=== PATIENT | female | born 2000 | race Caucasian/White ===

== ENCOUNTER 2021-08-06 16:46 | Emergency (ER) | payer BC, MEDICAID ==
[~2021-08-06] VITALS: Ht 175.3 cm; Wt 59.0 kg
[2021-08-06 16:55] VITALS: BP_SYST 149
--- NOTE | 2021-08-06 17:07 | NUR ---
Urine collected and sent to lab.
--- NOTE | 2021-08-06 17:07 | NUR ---
AMBULETED TO BED 8
[2021-08-06 17:11] LABS: BILIRUBIN,URINE NEGATIVE (NEGATIVE); BLOOD, URINE 2+ (NEGATIVE); CLARITY/URINE CLOUDY (CLEAR); COLOR,URINE YELLOW (YELLOW); GLUCOSE,URINE NEGATIVE (NEGATIVE); KETONES,URINE NEGATIVE (NEGATIVE); LEUKOCYTE ESTERASE ,URINE 2+ (NEGATIVE); NITRITE, URINE NEGATIVE (NEGATIVE); PROTEIN URINE 2+ (NEGATIVE); UROBILINOGEN,URINE 0.2 (0.2-1.0)
--- NOTE | 2021-08-06 17:15 | NUR ---
IV ACCESS TO THE LEFT AC WITH 22G IN ONE ATTEMPT. ATB THERAPY STARTED.
[2021-08-06 17:22] LABS: BACTERIA,URINE MODERATE /HPF (None Seen); RBC,URINE 50-80 /HPF (0-3); WBC,URINE >100 /HPF (0-3)
[2021-08-06 17:23] LABS: MUCUS,URINE None Seen /LPF (None Seen)
--- NOTE | 2021-08-06 18:09 | NUR ---
MD MOORE AT BEDSIDE TALKING TO PT ABOUT HER URINE TEST. NOTED UTI
[2021-08-06] MEDS ORDERED: cefTRIAXone 1 GM in D5W 50 ML IV ONE (18:15)
[2021-08-06] MEDS ORDERED: AZITHROMYCIN 250 MG TABLET PO ONE (18:15)
[2021-08-06] MEDS ORDERED: METOCLOPRAMIDE HCL 10 MG/2 ML VIAL IVP ONE (18:15)
[2021-08-06 18:33] LABS: BASOPHILS % (AUTO) 0.4 % (0.0-2.0); EOSINOPHILS # (AUTO) 0.1 K/uL (0.0-0.4); EOSINOPHILS % (AUTO) 1.5 % (0.0-4.0); HEMATOCRIT 40.9 % (36-48); HEMOGLOBIN 13.7 g/dL (12.0-16.0); LYMPHOCYTES # (AUTO) 1.5 K/uL (1.0-5.5); MEAN CORPUSCULAR HEMOGLOBIN 29 pg (27-31); MEAN CORPUSCULAR HGB CONC 34 % (32-36); MEAN CORPUSCULAR VOLUME 86 fL (79.0-98.0); MONOCYTES # (AUTO) 0.8 K/uL (0.0-1.0); MONOCYTES % (AUTO) 8.6 % (1.7-9.3); NEUTROPHILS # (AUTO) 6.9 K/uL (1.8-7.7); NEUTROPHILS % (AUTO) 73.5 % (40.0-70.0); PLATELET COUNT (AUTO) 270 K/uL (130-430); RED BLOOD CELL COUNT(AUTO) 4.76 MIL/uL (4.2-6.2); RED CELL DISTRIBUTION WIDTH 13.7 % (9.0-15.0); WHITE BLOOD COUNT (AUTO) 9.3 K/uL (4.8-10.8)
[2021-08-06] MEDS ORDERED: cefTRIAXone 1 GM VIAL ONE (18:48)
[2021-08-06 19:01] LABS: PROTHROMBIN TIME 10.9 SECS (9.5-12.5)
[2021-08-06 19:07] LABS: CALCIUM 9.3 mg/dL (8.4-11.0); CREATININE 0.76 mg/dL (0.55-1.30); POTASSIUM 3.8 mmol/L (3.5-5.1)
[2021-08-06 19:13] LABS: TOTAL BILIRUBIN 0.3 mg/dL (0.0-1.0)
[2021-08-06] MEDS ORDERED: CEFU250T85 PO (19:22)
[2021-08-06] MEDS ORDERED: PHEN-890 PO (19:22)
--- NOTE | 2021-08-06 19:32 | NUR ---
Patient given written and verbal discharge instructions and verbalizes understanding. ER MD discussed with patient the results and treatment provided. Patient in stable condition. ID arm band removed. IV catheter removed intact and dressing applied, no active bleeding. Rx of CEFTIN, PYRIDIUM given. Patient educated on pain management and to follow up with PMD. Pain Scale 0/10. Opportunity for questions provided and answered. Medication side effect fact sheet provided.
[2021-08-06 19:33] VITALS: BP_SYST 137
== END 2021-08-06 19:33 | disposition home or self-care (01) ==
LOC: SED 16:46
DX: N12 Tubulo-interstitial nephritis, not specified as acute or chronic (principal); R30.0 Dysuria; F12.90 Cannabis use, unspecified, uncomplicated
CPT/HCPCS: 80053; 81000; 81025; 83605; 84484; 85025; 85610; 85730; 87040; 87086; 93005; 96365; 96375; 99284; J0696; J2765; Q0144

== ENCOUNTER 2021-12-30 13:34 | Emergency (ER) | payer MEDICAID, SELFPAY ==
[~2021-12-30] VITALS: Ht 175.3 cm; Wt 63.5 kg
[~2021-12-30 13:34] MED LIST: CEFU250T85 PO; PHEN-890 PO
[2021-12-30 13:52] VITALS: BP_SYST 113
[2021-12-30 14:41] LABS: BILIRUBIN,URINE NEGATIVE (NEGATIVE); BLOOD, URINE 3+ (NEGATIVE); CLARITY/URINE SL CLOUDY (CLEAR); COLOR,URINE YELLOW (YELLOW); GLUCOSE,URINE NEGATIVE (NEGATIVE); KETONES,URINE NEGATIVE (NEGATIVE); LEUKOCYTE ESTERASE ,URINE TRACE (NEGATIVE); NITRITE, URINE NEGATIVE (NEGATIVE); PROTEIN URINE TRACE (NEGATIVE); UROBILINOGEN,URINE 0.2 (0.2-1.0)
[2021-12-30 14:51] LABS: BACTERIA,URINE MODERATE /HPF (None Seen); MUCUS,URINE 1+ /LPF (None Seen)
--- NOTE | 2021-12-30 14:55 | NUR ---
Patient to ER bed 08 to gown for evaluation. Side rails up.
--- NOTE | 2021-12-30 15:00 | NUR ---
Pt is A&Ox4. Ambulatory with steady gait. Skin intact. VSS. Neuro checks within normal limits. No chest pain and no sob. Denies n/v. Pt c/o having diarrhea on and off hten has constipation as well on and off. Also feels very weak more than usual accopanied with headaches. Bed in lowest position.
--- NOTE | 2021-12-30 15:02 | NUR ---
Tunnel El[employer] Operator Zigzag at bedside drawing blood.
--- NOTE | 2021-12-30 15:30 | NUR ---
ER Physician at bedside.
[2021-12-30 15:38] LABS: BASOPHILS % (AUTO) 0.4 % (0.0-2.0); EOSINOPHILS # (AUTO) 0.1 K/uL (0.0-0.4); EOSINOPHILS % (AUTO) 0.9 % (0.0-4.0); HEMATOCRIT 39.6 % (36-48); HEMOGLOBIN 13.1 g/dL (12.0-16.0); LYMPHOCYTES # (AUTO) 2.2 K/uL (1.0-5.5); MEAN CORPUSCULAR HEMOGLOBIN 28 pg (27-31); MONOCYTES # (AUTO) 0.4 K/uL (0.0-1.0); NEUTROPHILS # (AUTO) 3.6 K/uL (1.8-7.7); WHITE BLOOD COUNT (AUTO) 6.3 K/uL (4.8-10.8)
[2021-12-30 15:47] LABS: CALCIUM 9.1 mg/dL (8.4-11.0); CREATININE 0.67 mg/dL (0.55-1.30); LYMPHOCYTES % (AUTO) 35.1 % (20.5-51.5); MEAN CORPUSCULAR HGB CONC 33 % (32-36); MEAN CORPUSCULAR VOLUME 85 fL (79.0-98.0); MONOCYTES % (AUTO) 6.1 % (1.7-9.3); NEUTROPHILS % (AUTO) 57.5 % (40.0-70.0); PLATELET COUNT (AUTO) 244 K/uL (130-430); POTASSIUM 3.8 mmol/L (3.5-5.1); RED BLOOD CELL COUNT(AUTO) 4.67 MIL/uL (4.2-6.2)
[2021-12-30 16:02] LABS: ALBUMIN 4.2 g/dL (3.4-4.8); PHOSPHORUS 4.2 mg/dL (2.7-4.5); THYROID STIMULATING HORMONE 0.42 uIu/mL (0.36-3.74); TOTAL BILIRUBIN 0.3 mg/dL (0.0-1.0)
[2021-12-30 16:40] VITALS: BP_SYST 105
--- NOTE | 2021-12-30 16:48 | NUR ---
Patient given written and verbal discharge instructions and verbalizes understanding. ER MD discussed with patient the results and treatment provided. Patient in stable condition. ID arm band removed. Patient educated on pain management and to follow up with PMD. Pain Scale . Opportunity for questions provided and answered. Medication side effect fact sheet provided.
== END 2021-12-30 16:48 | disposition home or self-care (01) ==
LOC: SED 13:34
DX: R19.7 Diarrhea, unspecified (principal); Z79.899 Other long term (current) drug therapy
CPT/HCPCS: 36415; 80053; 81000; 81025; 83735; 84100; 84439; 84443; 85025; 87086; 99283

== ENCOUNTER 2022-06-22 17:50 | Emergency (ER) | payer MEDICAID ==
[~2022-06-22] VITALS: Ht 175.3 cm; Wt 59.0 kg
[2022-06-22 17:58] VITALS: BP_SYST 125
[2022-06-22 18:39] LABS: BASOPHILS % (AUTO) 0.7 % (0.0-2.0); EOSINOPHILS # (AUTO) 0.1 K/uL (0.0-0.4); EOSINOPHILS % (AUTO) 1.6 % (0.0-4.0); HEMATOCRIT 45.9 % (36-48); HEMOGLOBIN 15.3 g/dL (12.0-16.0); LYMPHOCYTES # (AUTO) 2.7 K/uL (1.0-5.5); LYMPHOCYTES % (AUTO) 38.5 % (20.5-51.5); MEAN CORPUSCULAR HEMOGLOBIN 28 pg (27-31); MEAN CORPUSCULAR HGB CONC 33 % (32-36); MEAN CORPUSCULAR VOLUME 85 fL (79.0-98.0); MONOCYTES # (AUTO) 0.6 K/uL (0.0-1.0); MONOCYTES % (AUTO) 8.9 % (1.7-9.3); NEUTROPHILS # (AUTO) 3.5 K/uL (1.8-7.7); NEUTROPHILS % (AUTO) 50.3 % (40.0-70.0); PLATELET COUNT (AUTO) 320 K/uL (130-430); RED BLOOD CELL COUNT(AUTO) 5.42 MIL/uL (4.2-6.2); RED CELL DISTRIBUTION WIDTH 12.9 % (9.0-15.0)
[2022-06-22 18:41] LABS: BILIRUBIN,URINE NEGATIVE (NEGATIVE); BLOOD, URINE 3+ (NEGATIVE); CLARITY/URINE SL CLOUDY (CLEAR); COLOR,URINE YELLOW (YELLOW); GLUCOSE,URINE NEGATIVE (NEGATIVE); KETONES,URINE NEGATIVE (NEGATIVE); LEUKOCYTE ESTERASE ,URINE NEGATIVE (NEGATIVE); NITRITE, URINE NEGATIVE (NEGATIVE); PROTEIN URINE NEGATIVE (NEGATIVE); UROBILINOGEN,URINE 0.2 (0.2-1.0)
[2022-06-22 18:51] LABS: CALCIUM 8.8 mg/dL (8.4-11.0); CREATININE 0.78 mg/dL (0.55-1.30); POTASSIUM 3.8 mmol/L (3.5-5.1)
[2022-06-22 18:52] LABS: BACTERIA,URINE FEW /HPF (None Seen)
[2022-06-22 18:53] LABS: MUCUS,URINE 1+ /LPF (None Seen)
[2022-06-22 19:05] LABS: ALBUMIN 4.2 g/dL (3.4-4.8); TOTAL BILIRUBIN 0.4 mg/dL (0.0-1.0)
--- NOTE | 2022-06-22 20:00 | NUR ---
DR. FARIAS SEEING PATIENT IN TRIAGE
--- NOTE | 2022-06-22 20:44 | NUR ---
Patient given written and verbal discharge instructions and verbalizes understanding. ER MD discussed with patient the results and treatment provided. Patient in stable condition. ID arm band removed. IV catheter removed intact and dressing applied, no active bleeding. Rx of N/A given. Patient educated on pain management and to follow up with PMD. Pain Scale . Opportunity for questions provided and answered. Medication side effect fact sheet provided.
== END 2022-06-22 20:44 | disposition home or self-care (01) ==
LOC: SED 17:50
DX: N93.9 Abnormal uterine and vaginal bleeding, unspecified (principal); Z79.899 Other long term (current) drug therapy
CPT/HCPCS: 36415; 80053; 81000; 81025; 84702; 85025; 99283